=== PATIENT | male | born 1995 | race Two or more races ===

== ENCOUNTER 2017-03-20 15:17 | Emergency (ER) | payer OTHER ==
[~2017-03-20] VITALS: Ht 167.6 cm; Wt 66.7 kg
--- NOTE | ~2017-03-20 | CR181 ---
[facility] A Service of [facility] & [facility] RADIOLOGY TEXT RESULTS PATIENT: HERBERT KLINE LOCATION: CFTX : [birth year] UNIT #: [id number] AGE: [address]: Sylvia Morin APRN SEX: M ORDER DR: [id number] [facility] [address] [facility]. [place], [place] [address] [id number] E MR#: [id number] Acc #: [id number] NAME: HERBERT KLINE : 1995 SEX: M STUDY DATE/TIME: 03/20/2017 16:21 UNIT: [facility] ROOM: STUDY DESCRIPTION: CR Lumbar Spine 2 or 3 Views Attending Physician: Sylvia Morin A.P.R.N. Ordering Physician: Ed Doctor [id number] [facility] Primary Care Physician: Primary Care Physician No MEDICAL IMAGING REPORT This report is preliminary unless electronic signature is present EXAM 3 views lumbar spine 03/20/2017 HISTORY Lumbar spine pain for 3 months. No known injury. AP and lateral projections of the lumbar segment show good mineralization of both anterior and posterior elements. They are all anatomically normal without indication of fracture, dislocation, or malignant change of a sclerotic or lytic type. There is no congenital defect noted. The sacroiliac joints are normal. IMPRESSION Normal lumbar spine. Dictated by... Fatoumata Collins M.D. THIS IS AN ELECTRONICALLY VERIFIED REPORT Fatoumata Collins M.D. at 03/21/2017 7:46 PM LLH/pcl TD: 03/21/2017 16:09 JOB #: [id number] MEDICAL IMAGING REPORT Page 1 of 1 COPY
[2017-03-20 15:48] LABS: URINE SOURCE CLEAN CATCH
[2017-03-20 15:53] LABS: URINE APPEARANCE CLEAR; URINE BILIRUBIN NEG (NEG); URINE BLOOD NEG (NEG); URINE COLOR YELLOW; URINE GLUCOSE NEG (NEG); URINE KETONE NEG (NEG); URINE LEUKOCYTE ESTERASE NEG (NEG); URINE NITRATE NEG (NEG); URINE PROTEIN NEG (NEG); URINE UROBILINOGEN 0.2 MG/DL (NEG)
[2017-03-20 16:04] LABS: CULTURE INDICATED? NO
== END 2017-03-20 17:20 | disposition home or self-care (01) ==
LOC: CFTX 15:17 → CED 15:17 → CFTX 16:05
DX: M54.42 Lumbago with sciatica, left side (principal); F17.210 Nicotine dependence, cigarettes, uncomplicated; Z98.890 Other specified postprocedural states
CPT/HCPCS: 72100; 81003; 99283